=== PATIENT | male | born 1995 | race Two or more races ===

== ENCOUNTER 2024-08-01 21:29 | Emergency (ER) | payer OTHER, SELFPAY ==
[2024-08-01 21:32] VITALS: BP 117/87
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
== END 2024-08-01 22:55 | disposition home or self-care (01) ==
LOC: EMR 21:29
PROVIDERS: EMERGENCY PHYSICIAN Emergency Medicine
DX: S62.307A Unspecified fracture of fifth metacarpal bone, left hand, initial encounter for closed fracture (principal); W22.8XXA Striking against or struck by other objects, initial encounter
CPT/HCPCS: 99283; 73130